=== PATIENT | female | born 1950 | race Caucasian/White ===

== ENCOUNTER → 2024-03-21 09:41 | Outpatient (REF) | payer MEDICARE, BC, SELFPAY | LOC: RAD 09:41 | PROVIDERS: ATTENDING PHYSICIAN Internal Medicine Gastroenterology; FAMILY PHYSICIAN Internal Medicine; OTHER PHYSICIAN Internal Medicine Gastroenterology | DX: R13.12 Dysphagia, oropharyngeal phase (principal) | CPT/HCPCS: 74230; 92611 ==

== ENCOUNTER 2024-05-23 11:34 | Inpatient (IN) | payer MEDICARE, BC, SELFPAY ==
[2024-05-23] VITALS (10 sets, daily range): BP systolic 128–168; BP diastolic 84–104; BMI 28.7; BMI 28.4
[2024-05-23 04:51] LABS: % Basophils 0.3 % (0-2); % Immature Granulocytes 0.4 % (0-0.5); % Lymphocytes 6.3 % (20.5-51.1); % Monocytes 2.7 % (1.7-9.3); % Neutrophils 90.3 % (42.2-75.2); Absolute Basophils 0.1 10^3/uL (0-0.2); Absolute Immature Granulocytes 0.1 10^3/uL (0-0.05); Absolute Lymphocytes 1.2 10^3/uL (1.2-3.4); Absolute Monocytes 0.5 10^3/uL (0.1-0.6); Hematocrit 41.6 % (37.0-47.0); Hemoglobin 14.6 g/dL (12.0-16.0); Mean Corp Hgb Conc. 35.1 g/dL (33.0-37.0); Mean Corpuscular Hgb 29.3 pg (27.0-31.0); Mean Corpuscular Volume 83.5 fL (81.0-99.0); Mean Platelet Volume 8.9 fL (7.4-10.4); Nucleated Red Blood Cells % 0 %; Platelet Count 312 10^3/uL (130-400); Red Blood Cell Count 4.98 10^6/uL (4.20-5.40); Red Cell Dist. Width 12.7 % (11.5-14.5); White Blood Cell Count 18.8 10^3/uL (4.8-10.8)
[2024-05-23 05:04] LABS: Lactic Acid 2.5 mmol/L (0.7-2.0)
[2024-05-23 05:14] LABS: ALT (SGPT) 22 U/L (0-35); AST (SGOT) 23 U/L (14-36); Albumin 4.5 g/dl (3.5-5.0); Alkaline Phosphatase 115 U/L (38-126); Blood Urea Nitrogen 16 mg/dl (7-17); Calcium 10.2 mg/dl (8.4-10.2); Carbon Dioxide 24 mmol/L (22-30); Chloride 105 mmol/L (98-107); Estimated Creatinine Clearance 30 ml/min; Glucose 148 mg/dl (70-99); Lipase 57 U/L (23-300); Potassium 4.7 mmol/L (3.5-5.1); Sodium 140 mmol/L (135-145); Total Bilirubin 0.8 mg/dl (0.2-1.3); eGFR 39.48
--- NOTE | 2024-05-23 07:55 | ED.GENMED ---
History of Present Illness
General
Chief Complaint: Abdominal Symptoms
Source: patient
Exam Limitations: none
Time Seen by Provider: 05/23/24 07:39
History of Present Illness
History of Present Illness:
73-year-old female presents with onset of vomiting abdominal pain and diarrhea last evening. She had many episodes of both. Towards the end she noted red drops of blood coming into the toilet after having bowel movements. The stool otherwise was
brown. She is not anticoagulated she notes diffuse abdominal pain. She states she has not had a bowel movement since arriving in the emergency room. She states in the past in [place] she was diagnosed with some type of colitis. She has been
following with a GI doctor through [facility] but recently switched to the [facility] gastroenterology group. She is due for colonoscopy on June 15. She is not anticoagulated
Phy Exam
Physical Exam
Physical Exam:
General: Uncomfortable appearing female no acute respiratory distress
HEENT: Normocephalic atraumatic neck is supple
Heart: Tachycardic but regular
Lungs: Clear no wheeze
Abdomen: Soft diffusely tender no guarding or rebound normal bowel sound
Extremities: No cyanosis
Course
Orders/Labs/Results
Orders:
Orders
05/23/24 04:15
IV Insert/Care/Rem.- Treatment PRN
05/23/24 04:30
Type+Screen Urgent
Complete Blood Count/With Diff Urgent
Comprehensive Metabolic Panel Urgent
Lipase Urgent
05/23/24 04:37
Lactate Level [Lactic Acid] Urgent
05/23/24 07:53
STOOL [C difficile Antigen & Toxins] Urgent
LAKSHMI Source: Feces/Stool
Specimen Description:
Stool Culture Urgent
LAKSHMI Source: Feces/Stool
Specimen Description:
0.9% Sodium Chloride 1000 ml [Nss] 1,000 ml IV BOLUS
Ketorolac [Toradol] 15 mg IV NOW STA
05/23/24 07:54
CT Abd/pelvis W Iv Cont Urgent
Comment:
Reason For Exam: abdominal pain, diarrhea
05/23/24 08:47
Zosyn 3.375 grams IVPB NOW Piperacillin/Tazo 3.375 Gram [Zosyn] 3.375 gram in 50 ml IV NOW
Abnormal Lab Results
05/23/24 05/23/24
04:30 04:37
WBC 18.8 H 10^3/uL
(4.8-10.8)
Abs Immat Gran (auto) 0.1 H 10^3/uL
(0-0.05)
Absolute Neuts (auto) 17.0 H 10^3/uL
(1.4-6.5)
Neutrophils % 90.3 H %
(42.2-75.2)
Lymphocytes % 6.3 L %
(20.5-51.1)
Creatinine 1.4 H mg/dL
(0.6-1.0)
Glucose 148 H mg/dl
(70-99)
Lactic Acid 2.5 H mmol/L
(0.7-2.0)
05/23/24 04:30
05/23/24 04:30
Vital Signs
Initial and Last Documented VS:
Initial Vital Signs
Temp Pulse Resp BP Pulse Ox
98.5 F 110 16 168/100 96
05/23/24 03:53 05/23/24 03:53 05/23/24 03:53 05/23/24 03:53 05/23/24 03:53
Last Documented Vital Signs
Temp Pulse Resp BP Pulse Ox
98.5 F 115 25 151/104 94
05/23/24 03:53 05/23/24 07:34 05/23/24 07:34 05/23/24 07:34 05/23/24 07:34
MDM/Problems Addressed
Differential Diagnosis Includes:
Abdominal pain vomiting diarrhea. Question viral illness versus colitis versus gastroenteritis versus obstruction
Patient tender on exam. Will obtain CT scan. If patient has bowel movement check stool culture for infectious cause. On laboratory analysis patient has leukocytosis with a left level of 2.5. Fluids ordered Toradol ordered for pain.
*Critical Care Note
Total Time (30-74mins, 75-104mins- exclusive of procedures): Not Applicable
Update Note
Update Note:
CT scan demonstrates diffuse colitis whether be infectious versus inflammatory. Will cover with antibiotics given the leukocytosis and elevated lactic acid. Hydration ordered Zosyn ordered. Will admit to hospital
ED Attending Note
-
Portions of this chart may have been created with voice recognition software.� Occasional wrong word or��sound alike� substitutions may have occurred due to the inherent limitations of voice recognition software.
Discharge Plan
Departure
Patient Disposition: Admit
Date of Disposition: 05/23/24
Time of Disposition: 08:48
Admit to: Telemetry
Presentation/result/management discussed w/ accepting MD/DO: Hospitalist
Discharge Problem:
Colitis
Prescriptions:
No Action
ascorbic acid (vitamin C) [Vitamin C] 1,000 mg Tablet
1,000 mg PO DAILY
guaifenesin [Robitussin] 100 mg/5 mL Liquid
200 mg PO Q4H PRN (Reason: cough)
simvastatin 20 mg Tablet
20 mg PO DAILY
albuterol 90 mcg/actuation Aerosol
90 mcg INHALATION DAILY
polyethylene glycol 3350 [Miralax] 17 gram/dose Powder
4 g PO DAILY
Excedrin Migraine 250-250-65 mg Tablet
2 tab PO Q6H PRN (Reason: headache)
diazepam 5 mg Tablet
2.5 mg PO DAILY
bupropion HCl 200 mg Tablet Sustained-Release 12 Hr
200 mg PO DAILY
cholecalciferol (vitamin D3) [Vitamin D3] 125 mcg (5,000 unit) Tablet
125 mcg PO DAILY
Nurtec ODT 75 mg Tablet,Disintegrating
75 mg PO ONCE PRN (Reason: migraines)
Multivitamin Women 50 Plus
1 tab PO DAILY
Referrals:
Sanjeev Rivera MD [Family Provider] -
Interventions
Interventions:
*Risk Screen - Suicide Last Done: 05/23/24 03:53
*General Assessment Last Done: 05/23/24 03:53
*Neglect/Abuse Screening Last Done: 05/23/24 03:53
ED- Fall Risk Assessment Last Done: 05/23/24 03:53
*ED COVID-19 Vaccine History Last Done: 05/23/24 03:53
UF-Zexvdw-Bcettrrqgz Assessment Last Done: 05/23/24 04:00
Discharge Date and Time
Print Language: THAI
[2024-05-23] MEDS: TORADOL 15 MG IV (08:03)
[2024-05-23] MEDS: NSS 1000 IV ×3 (08:04→23:27)
[2024-05-23] MEDS: ZOSYN 50 IV ×3 (09:02→20:33)
--- NOTE | 2024-05-23 09:06 | HPS.HSE ---
Family Physician
-
Family Physician: Sanjeev Rivera MD
Chief Complaint
-
Bloody diarrhea
History of Present Illness
73F migraine anxiety GERD hyperlipidemia presents with new onset vomiting abdominal pain diarrhea last evening. Noted blood spots in last diarrhea bowel movement prompting visit to ED. Patient relates history of chronic intermittent alternating
constipation diarrhea nausea vomiting for the past few years. Diagnosed with unspecified colitis in past. Recently followed at [place] switched to GI care here. Former smoker 25+ years recently quit January 2024. In ED patient was sinus
tachycardia hypertensive but afebrile stable respiratory status on room air. Diffuse abdomen pain, left-sided tenderness, improved with once Toradol given by ED. Leukocytosis 18.8. Mild lactic acidosis 2.5 resolved with IV fluid bolus. Initial
creatinine 1.4 no prior values available. CT noted severe colitis involving distal transverse colon descending colon and proximal sigmoid colon. Suspect IBD flare versus sepsis (tachycardia leukocytosis) infectious colitis
Medical History
Past Medical History
Past Medical History: Reports Other (As above)
Past Surgical History: Reports Other (As above)
Social History
Tobacco: Former Smoker
Alcohol: Occasional
Drug: None
Personal:
Living: Alone
Family History
Family History: Not pertinent (Reviewed)
Allergies / Home Medications
Allergies reflects when Allergies were last updated in [facility].
Home Medications with original date entered in [facility]
Allergy/Medication List:
Allergies
Allergy/AdvReac Type Severity Reaction Status Date / Time
No Known Allergies Allergy Unverified 05/23/24 03:52
Home Medications
puzxizj-ytedujpvuywfa-ndktlfyo 250 mg-250 mg-65 mg tablet (Excedrin Migraine) 2 tab PO DAILYPRN PRN headache 05/23/24
bupropion HCl 200 mg tablet,12 hr sustained-release 200 mg PO BID 05/23/24
cholecalciferol (vitamin D3) 25 mcg (1,000 unit) tablet (Vitamin D3) 25 mcg PO DAILY 05/23/24
diazepam 5 mg tablet 2.5 mg PO HS 05/23/24
guaifenesin 100 mg/5 mL oral liquid 200 mg PO Q4HPRN PRN cough 05/23/24
omeprazole 20 mg tablet,delayed release 20 mg PO HS 05/23/24
polyethylene glycol 3350 17 gram/dose oral powder (Miralax) 17 g PO DAILY 05/23/24
rimegepant 75 mg disintegrating tablet (Nurtec ODT) 75 mg PO DAILYPRN PRN migraines 05/23/24
simvastatin 20 mg tablet 20 mg PO QPM 05/23/24
therapeutic multivitamin 1 tab PO DAILY 05/23/24
Review of Systems
-
A 12 point ROS was completed and negative except as noted: Yes
Constitutional: Reports Other (As below)
Physical Exam
Vital Signs
Vital Signs
Temp Pulse Resp BP Pulse Ox
98.5 F 105 25 162/96 94
05/23/24 03:53 05/23/24 08:45 05/23/24 08:45 05/23/24 08:00 05/23/24 08:00
Physical Exam
General: Other (As below)
Laboratory Results
-
05/23/24 04:30
05/23/24 04:30
Laboratory Results
Lactic Acid 2.5 mmol/L (0.7-2.0) H 05/23/24 04:37
Total Bilirubin 0.8 mg/dl (0.2-1.3) 05/23/24 04:30
AST 23 U/L (14-36) 05/23/24 04:30
ALT 22 U/L (0-35) 05/23/24 04:30
Alkaline Phosphatase 115 U/L (38-126) 05/23/24 04:30
Lipase 57 U/L (23-300) 05/23/24 04:30
Impression/Plan
-
ROS
General: Denies fever chills night sweats unexpected weight loss
Neuro: Denies seizure shaking loss of consciousness dizziness vertigo
Psych: denies depression hallucinations confusion manic episodes
Endocrine: Denies polyuria polydipsia polyphagia heat/cold intolerance
HEENT: Denies blindness visual disturbances epistaxis
Pulmonary: denies coughing hemoptysis sneezing sob dyspnea on exertion
Cardiovascular: denies chest pain palpitations leg swelling
Hematology: denies signs symptoms of anemia easy bruising/bleeding
Gastrointestinal: reports diffuse abd pain diarrhea with blood spotting nausea vomiting, also notes hx intermittent alternating constipation diarrhea
Genito-Urinary: denies retention incontinence dysuria
Musculoskeletal: denies joint pain weakness
Dermatology: denies rash laceration bruising
Physical Exam
General: No pallor, cyanosis, or jaundice.
HEENT: Throat clear. PERRLA Normocephalic atraumatic
NECK: Supple. No JVD Carotid Bruits
RESPIRATORY: Lungs clear to auscultation. No crackles wheezes stridor
CVS: S1, S2 normal. RRR. No murmur, rub or gallop.
ABDOMEN: Soft, Left sided abd tenderness no rebound tenderness or guarding. No distension. BS+/normal.
EXTREMITIES: No peripheral cyanosis or edema.
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
IMPRESSION:
73F migraine anxiety GERD hyperlipidemia presents with new onset vomiting abdominal pain diarrhea last evening. Noted blood spots in last diarrhea bowel movement prompting visit to ED. Patient relates history of chronic intermittent alternating
constipation diarrhea nausea vomiting for the past few years. Diagnosed with unspecified colitis in past. Recently followed at [place] switched to GI care here. Former smoker 25+ years recently quit January 2024. In ED patient was sinus
tachycardia hypertensive but afebrile stable respiratory status on room air. Diffuse abdomen pain, left-sided tenderness, improved with once Toradol given by ED. Leukocytosis 18.8. Mild lactic acidosis 2.5 resolved with IV fluid bolus. Initial
creatinine 1.4 no prior values available. CT noted severe colitis involving distal transverse colon descending colon and proximal sigmoid colon. Suspect IBD flare versus sepsis (tachycardia leukocytosis) infectious colitis
PLAN:
#Sepsis (tachycardia leukocytosis) infectious colitis versus IBD flare
#Bloody diarrhea
#Severe colitis as noted on CT
Continue empiric IV antibiotics Zosyn
Bowel rest, n.p.o. except meds sips of clears
IV fluid
Pain control as needed Dilaudid Tylenol
As needed antiemetic Compazine
Check EKG
GI eval requested
#Hypertension
Possibly due to pain discomfort
classroom monitor
Hydralazine as needed
#NINA versus CKD
Initial creatinine 1.4 unclear baseline
Denies dysuria oliguria
Monitor renal function, avoid nephrotoxic agents
#Migraine
Continue as needed Fioricet, Nurtec (patient's own med)
#Anxiety
Continue home bupropion, diazepam with holding parameters for sedation
#GERD
Continue PPI
DVT prophylaxis SCDs
DNR as per patient
I spent a total of 75 minutes with the patient or on the floor. More than 50% of this time involved counseling and coordination of care.
[2024-05-23 10:39] LABS: Lactic Acid 1.7 mmol/L (0.7-2.0)
--- NOTE | 2024-05-23 13:18 | CON.GI ---
Addendum entered and electronically signed by Mason Hanson MD 05/23/24 14:44:
Patient seen and examined, agree with nurse practitioner note. Patient presents with recurrent abdominal pain, vomiting and diarrhea. She has had multiple episodes of this over the past year and has had workup in [place] where colonoscopy showed
segmental colitis in the proximal sigmoid to distal transverse. She has episodes every few weeks and more severe symptoms, and did see more local GI, taking MiraLAX daily with soft stools usually. She now presents with more severe symptoms again
starting last night which is similar to in the past. She has significant leukocytosis with white count of 18.[address] scan again showing severe colitis from the distal transverse to the proximal sigmoid colon. She is feeling a bit better now. She
has been afebrile, and only mild tenderness on the left side on exam, no rebound. 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 Underlying inflammatory bowel disease seems very unlikely given her
symptoms. At this point we will continue supportive care, IV fluids, antibiotics, check stool studies if further diarrhea. She has EGD and colonoscopy scheduled already on June 16 and will keep this for now. Pending her renal function may
consider MR angiogram during this hospitalization.
Original Note:
Consultation
-
Date/Time Consultation Requested: 05/23/24 1130
Date/Time Consultation Performed: 05/23/24 1320
Requesting Provider: Lizandro Avila MD
Performing Provider: JOSE A Higuera, Jonny Hanson MD
Reason for Consultation: abdominal pain with nausea, vomiting and diarrhea
Medical History
Chief Complaint / HPI
History of Present Illness:
Pt is a 73yo presents with hx GERD, hypercholesterolemia, anxiety, hemorrhoids, HH, cataracts,migraines, chronic cough, diverticulitis, IBS and colitis 2016 with hx recurrent bouts of abdominal pain with nausea, vomiting and diarrhea. Pt states
she has had innumerable bouts over the years with only admission in [place] where she resided in past. She moved here around 3 years ago with care through Dr. Olmedo and recent evaluation for Dr. Mekapati. She now presents with severe bout of
symptoms starting last PM. On admission hbg 14.6, WBC 18.8, Lactate 2.5 with drop to 1.[address] with severe colitis in distal transverse colon, descending and proximal sigmoid colon. Last colonoscopy 2016 in [place] with segmental
colitis from mid sigmoid to proximal extent of distal transverse colon with ulceration, submucosal hemorrhage and mucosal edema. exam terminated in due to severity of colitis. Also noted diverticulosis and hemorrhoids.
Pt admits to hx GERD with prior Linx device but recent cough possible GERD related and remains on Omeprazole. She did have nausea/vomiting without hematemesis. on admission now resolved. Abdominal pain is lower. Noted 09/07 prior to admission
then 2-02/05 today. She admits to Miralax daily with daily BM often on looser side. No constipation. She did have small amount red blood in stools with diarrhea last PM now resolved.
Past Medical History
Past Medical History: GERD, Hypercholesterolemia, Renal Failure (CKD), Psychiatric (anxiety) and Other (unspecified colitis, cataracts, IBS, HH, hemorrhoids, chronic cough, migraines, diverticultis )
Past Surgical History: Cholecystectomy, Gynecological (hysterectomy), Tonsilectomy and Other (rhinoplasty, foot neuroma removal, b/l Lasik, blepharoplasty, cataract surgery, Linx 2018 )
Social History
Tobacco: Former Smoker (quit January )
Alcohol: Occasional (2 drinks per month)
Drug: None
Living: Alone
Employment: Retired
Family History
Family History: Other (no family hx )
Allergies / Home Medications
Allergy/AdvReac Type Severity Reaction Status Date / Time
No Known Allergies Allergy Unverified 05/23/24 03:52
�Medication �Instructions �Recorded
ocyarzs-mrmpxuzcgoouh-gsxbzbbv 250 2 tab PO DAILYPRN PRN headache 05/23/24
mg-250 mg-65 mg tablet (Excedrin
Migraine)
bupropion HCl 200 mg tablet,12 hr 200 mg PO BID 05/23/24
sustained-release
cholecalciferol (vitamin D3) 25 25 mcg PO DAILY 05/23/24
mcg (1,000 unit) tablet (Vitamin
D3)
diazepam 5 mg tablet 2.5 mg PO HS 05/23/24
guaifenesin 100 mg/5 mL oral liquid 200 mg PO Q4HPRN PRN cough 05/23/24
omeprazole 20 mg tablet,delayed 20 mg PO HS 05/23/24
release
polyethylene glycol 3350 17 17 g PO DAILY 05/23/24
gram/dose oral powder (Miralax)
rimegepant 75 mg disintegrating 75 mg PO DAILYPRN PRN migraines 05/23/24
tablet (Nurtec ODT)
simvastatin 20 mg tablet 20 mg PO QPM 05/23/24
therapeutic multivitamin 1 tab PO DAILY 05/23/24
Review of Systems
-
History Source: Patient
Constitutional: Reports No Symptoms
EENT: Reports No Symptoms
Respiratory: Reports Cough
Abdomen/GI: Reports Abdominal Pain, Nausea, Vomiting, Diarrhea and Bloody Stools
: Reports Incontinence (at times )
Musculoskeletal: Reports No Symptoms
Skin: Reports No Symptoms
Neurological: Reports Weakness
Endocrine: Reports No Symptoms
Hematologic/Lymphatic: Reports Bleeding
Vital Signs
Temp Pulse Resp BP Pulse Ox
98.5 F 108 14 128/84 97
05/23/24 03:53 05/23/24 11:45 05/23/24 11:45 05/23/24 11:00 05/23/24 11:52
Physical Exam
Exam
General: Well Developed, Well Nourished and No Apparent Distress
HEENT: Normocephalic and Anicteric
Respiratory: Clear
Cardiac: Other (tachy)
GI: Soft, Non Distended and Tender (lower abdomen )
Musculoskeletal: No Clubbing and No Cyanosis
Skin: Warm and Dry
Neuro: Awake, Alert and AO x 3
Psych: Calm
Results
WBC 18.8 10^3/uL (4.8-10.8) H 05/23/24 04:30
Hgb 14.6 g/dL (12.0-16.0) 05/23/24 04:30
Hct 41.6 % (37.0-47.0) 05/23/24 04:30
MCV 83.5 fL (81.0-99.0) 05/23/24 04:30
Plt Count 312 10^3/uL (130-400) 05/23/24 04:30
Absolute Neuts (auto) 17.0 10^3/uL (1.4-6.5) H 05/23/24 04:30
Sodium 140 mmol/L (135-145) 05/23/24 04:30
Potassium 4.7 mmol/L (3.5-5.1) 05/23/24 04:30
Chloride 105 mmol/L (98-107) 05/23/24 04:30
Carbon Dioxide 24 mmol/L (22-30) 05/23/24 04:30
BUN 16 mg/dl (7-17) 05/23/24 04:30
Creatinine 1.4 mg/dL (0.6-1.0) H 05/23/24 04:30
Calcium 10.2 mg/dl (8.4-10.2) 05/23/24 04:30
Total Bilirubin 0.8 mg/dl (0.2-1.3) 05/23/24 04:30
AST 23 U/L (14-36) 05/23/24 04:30
ALT 22 U/L (0-35) 05/23/24 04:30
Alkaline Phosphatase 115 U/L (38-126) 05/23/24 04:30
Lipase 57 U/L (23-300) 05/23/24 04:30
Diagnostic Image Results:
05/23/24 CT Abd/pelvis W Iv Cont
1. Findings consistent with severe colitis involving the distal transverse colon, descending colon, and proximal sigmoid colon. Colitis is likely infectious or inflammatory.
2. Status post cholecystectomy. Mild biliary ductal dilation, likely within normal limits following cholecystectomy.
Prior GI Procedures:
Colonoscopy: 2016 in [place] with segmental colitis from mid sigmoid to proximal extent of distal transverse colon with ulceration, submucosal hemorrhage and mucosal edema. exam terminated in [facility] due to severity of colitis. Also noted
diverticulosis and hemorrhoids.
Assessment / Plan
-
Pt is a 73yo presents with hx GERD, hypercholesterolemia, anxiety, hemorrhoids, HH, cataracts,migraines, chronic cough, diverticulitis, IBS and colitis 2016 with hx recurrent bouts of abdominal pain with nausea, vomiting and diarrhea. Pt states
she has had innumerable bouts over the years with only admission in [place] where she resided in past. She moved here around 3 years ago with care through Dr. Olmedo and recent evaluation for Dr. Haro. She now presents with severe bout of
symptoms starting last PM. On admission hbg 14.6, WBC 18.8, Lactate 2.5 with drop to 1.[address] with severe colitis in distal transverse colon, descending and proximal sigmoid colon. Last colonoscopy 2016 in [place] with segmental
colitis from mid sigmoid to proximal extent of distal transverse colon with ulceration, submucosal hemorrhage and mucosal edema. exam terminated in [facility] due to severity of colitis. Also noted diverticulosis and hemorrhoids.
-left sided colitis with nausea/vomiting, diarrhea and rectal bleeding
-leukocytosis
-hx prior segmental colitis on prior colonoscopy
other med problems:
-GERD with prior LINX
-chronic cough
-hypercholesterolemia
-anxiety
-HH
-cataracts
-migraines
-IBS
-prior tobacco use
PLAN:
etiology of recurrent abdominal pain related to colitis- ischemic with noted left sided distribution, infectious vs IBD
pt feeling better
advance to clear diet
will review with Dr. Hanson-- for EGD/colon she is scheduled 06/[address] Haro vs pt asking about inpatient testing
t/c CTA vs MRA to eval vasculature
maintain adequate perfusion
trend CBC
stool cx pending to be sent
IV abx
resume PPI with hx GERD
tobacco abstience
-
-
-
Thank you for consultation and allowing me to participate in the patient's care. Please call the controls project engineer GI physician during the after hours with any questions or concerns.
[2024-05-23] MEDS: DILAUDID 0.25 MG IV (16:39)
[2024-05-23] MEDS: APRESOLINE 5 MG IV ×2 (17:37→23:26)
[2024-05-23] MEDS: LIPITOR 10 MG PO (17:37)
[2024-05-23] MEDS: VALIUM 2.5 MG PO (21:26)
[2024-05-23] MEDS: COMPAZINE 5 MG IV (21:29)
[2024-05-24] VITALS (7 sets, daily range): BP systolic 114–140; BP diastolic 64–83
[2024-05-24] MEDS: DILAUDID 0.5 MG IV ×2 (01:37→14:04)
[2024-05-24] MEDS: ZOSYN 50 IV ×4 (02:27→21:06)
--- NOTE | 2024-05-24 06:33 | W.PN.GI.CBS2 ---
Today's Communication / Plan
-
Please see assessment and plan for details.
Assessment / Plan
-
1. Colitis: With chronic intermittent symptoms, and several studies now that show significant colitis at the splenic flexure, most consistent with watershed ischemia. She still has tenderness though is overall improved, afebrile overnight. At
this point we will continue supportive care, antibiotics for now, stool studies if further diarrhea. Will advance to full liquid diet and if continues to improve then probably advance to low residue tomorrow and possible discharge, to follow-up
with planned outpatient EGD and colonoscopy already scheduled in later May.
-
Subjective
Subjective
Date of Service: May 24, 2024
Patient feeling okay, still some tenderness though improved, no fevers overnight, no bowel movements overnight.
Objective
Data Reviewed
Laboratory Data:
Laboratory Results
Total Bilirubin 0.8 mg/dl (0.2-1.3) 05/23/24 04:30
AST 23 U/L (14-36) 05/23/24 04:30
ALT 22 U/L (0-35) 05/23/24 04:30
Alkaline Phosphatase 115 U/L (38-126) 05/23/24 04:30
Lipase 57 U/L (23-300) 05/23/24 04:30
Vital Signs and I&O:
Vital Signs
Temp Pulse Resp BP Pulse Ox
98.0 F 97 19 114/69 95
05/24/24 03:38 05/24/24 03:38 05/24/24 03:38 05/24/24 03:38 05/24/24 03:38
I&O
05/22/24 05/23/24 05/24/24
06:59 06:59 06:59
Intake Total 1440 / 1440
Balance 1440 / 1440
Physical Exam
Physical Exam
General: NAD
Abdomen: normal bowel sounds, soft, mild left-sided tenderness, no masses or bruits, no ascites
[2024-05-24 06:38] LABS: Hematocrit 35.6 % (37.0-47.0); Hemoglobin 12.4 g/dL (12.0-16.0); Mean Corp Hgb Conc. 34.8 g/dL (33.0-37.0); Mean Corpuscular Hgb 29.5 pg (27.0-31.0); Mean Corpuscular Volume 84.8 fL (81.0-99.0); Mean Platelet Volume 8.9 fL (7.4-10.4); Platelet Count 264 10^3/uL (130-400); Red Cell Dist. Width 13.2 % (11.5-14.5); White Blood Cell Count 16.2 10^3/uL (4.8-10.8)
[2024-05-24 07:24] LABS: ALT (SGPT) 21 U/L (0-35); AST (SGOT) 31 U/L (14-36); Albumin 3.4 g/dl (3.5-5.0); Alkaline Phosphatase 81 U/L (38-126); Blood Urea Nitrogen 12 mg/dl (7-17); Calcium 8.8 mg/dl (8.4-10.2); Carbon Dioxide 22 mmol/L (22-30); Chloride 110 mmol/L (98-107); Estimated Creatinine Clearance 35 ml/min; Glucose 100 mg/dl (70-99); Magnesium 2.2 mg/dl (1.6-2.3); Phosphorus 3.6 mg/dl (2.5-4.5); Sodium 137 mmol/L (135-145); Total Bilirubin 0.8 mg/dl (0.2-1.3); Total Protein 5.5 g/dl (6.3-8.2)
--- NOTE | 2024-05-24 07:25 | W.PN.HOSP.TC ---
Today's Communication/Plan
-
abx
IVF support
pain control
diet as per GI
monitor H&H
Assessment / Plan
Assessment / Plan
Physical Exam
General: No pallor, cyanosis, or jaundice.
HEENT: Throat clear. PERRLA Normocephalic atraumatic
NECK: Supple. No JVD Carotid Bruits
RESPIRATORY: Lungs clear to auscultation. No crackles wheezes stridor
CVS: S1, S2 normal. RRR. No murmur, rub or gallop.
ABDOMEN: Soft, Left sided abd tenderness no rebound tenderness or guarding. No distension. BS+/normal.
EXTREMITIES: No peripheral cyanosis or edema.
CHEMISTRY TECHNOLOGIST: AOx3..
IMPRESSION:
73F migraine anxiety GERD hyperlipidemia presents with new onset vomiting abdominal pain diarrhea last evening. Noted blood spots in last diarrhea bowel movement prompting visit to ED. Patient relates history of chronic intermittent alternating
constipation diarrhea nausea vomiting for the past few years. Diagnosed with unspecified colitis in past. Recently followed at [place] switched to GI care here. Former smoker 25+ years recently quit January 2024. In ED patient was sinus
tachycardia hypertensive but afebrile stable respiratory status on room air. Diffuse abdomen pain, left-sided tenderness, improved with once Toradol given by ED. Leukocytosis 18.8. Mild lactic acidosis 2.5 resolved with IV fluid bolus. Initial
creatinine 1.4 no prior values available. CT noted severe colitis involving distal transverse colon descending colon and proximal sigmoid colon. Suspect IBD flare versus sepsis (tachycardia leukocytosis) infectious colitis
PLAN:
#Sepsis (tachycardia leukocytosis) infectious colitis versus IBD flare vs ischemic colitis (most likely)
#Bloody diarrhea
#Severe colitis as noted on CT
Continue empiric IV antibiotics Zosyn
cont IV fluid
Pain control as needed Dilaudid Tylenol
As needed antiemetic Compazine
EKG appreciated mild QT prolongation
GI eval appreciated diet advanced to full liquid later downgraded back to clears after episode bloody bowel movement (VSS H&H remains relatively stable will cont to monitor)
#Hypertension
Possibly due to pain discomfort
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
Hydralazine as needed
#NINA versus CKD
Initial creatinine 1.4 unclear baseline
Denies dysuria oliguria
Monitor renal function, avoid nephrotoxic agents
cont IVF
Cr improving
#Migraine
Continue as needed Fioricet, Nurtec (patient's own med)
#Anxiety
Continue home bupropion, diazepam with holding parameters for sedation
#GERD
Continue PPI
DVT prophylaxis SCDs
DNR as per patient
Discussed with patient and patient's Daughter Keke at bedside
I spent a total of 55 minutes with the patient or on the floor. More than 50% of this time involved counseling and coordination of care.
Anticipated Discharge: 24 - 48 hours
Subjective/Interval History
-
Date of Service: May 24, 2024
Seen and examined at bedside in no acute distress sitting up comfortably in bed. Continues to report significant abd pain with associate left sided tenderness. Recent bloody bowel movement noted. Vital signs otherwise stable
Objective Data
-
Labs:
Laboratory Results
05/24/24
05:33
WBC 16.2 H
Hgb 12.4
Hct 35.6 L
Plt Count 264
Sodium 137
Potassium 4.0
Chloride 110 H
Carbon Dioxide 22
BUN 12
Creatinine 1.2 H
Glucose 100 H
Calcium 8.8
Total Bilirubin 0.8
AST 31
ALT 21
Alkaline Phosphatase 81
Vital Signs:
Vital Signs
Temp Pulse Resp BP Pulse Ox
98.0 F 97 19 114/69 95
05/24/24 03:38 05/24/24 03:38 05/24/24 03:38 05/24/24 03:38 05/24/24 03:38
I&O
05/23/24 05/24/24 05/25/24
06:59 06:59 06:59
Intake Total 1440 / 1440
Balance 1440 / 1440
[2024-05-24] MEDS: PROTONIX IV 40 MG IV (08:46)
[2024-05-24] MEDS: THERAGRAN 1 TABLET PO (08:46)
[2024-05-24] MEDS: VITAMIN D3 (cholecalciferol) 25 MCG PO (08:46)
[2024-05-24] MEDS: NSS (PRESERVATIVE FREE) 10 ML IV (08:46)
[2024-05-24] MEDS: WELLBUTRIN XL (24 hour extended release) 150 MG PO (08:46)
--- NOTE | 2024-05-24 10:06 | PTCARENOTE ---
pt is a self in the room currently on a full liquid diet. pt is receiving IVF and IV zosyn through her L AC site. pt is aaox3 within the room and has no complaints at this time
[2024-05-24] MEDS: NSS 1000 IV ×2 (11:18→22:41)
[2024-05-24] MEDS: TYLENOL 650 MG PO (11:19)
--- NOTE | 2024-05-24 13:14 | CM ---
Initial assessment completed with patient who lives alone in a 1st floor condo with 4 steps to enter. No DME or in-home services. [employer] ARCHITECT was independent and drove. One Psychiatric hospitalization in 1986 for depression. [facility]
[address] in [place] and PCP is Dr. Sanjeev Rivera. Patient is requesting a Audit Practice Intern consult. Attending notified. Anticipate no needs at discharge.
[2024-05-24 14:01] LABS: Hematocrit 36.3 % (37.0-47.0); Hemoglobin 12.7 g/dL (12.0-16.0)
--- NOTE | 2024-05-24 14:24 | PTCARENOTE ---
pt with blood in stool when nurse and pct went to collect sample. all that was in hat was blood with no stool content. pt with rechecked H&H, continuing IVF and changed back to clear liquid diet at this time. MD and GI made aware and orderss placed.
Stat 0.5mg of dilaudid given for pt abd pain.
[2024-05-24] MEDS: LIPITOR 10 MG PO (18:17)
[2024-05-24 19:35] LABS: Hematocrit 33.3 % (37.0-47.0); Hemoglobin 11.7 g/dL (12.0-16.0)
[2024-05-24] MEDS: ROBITUSSIN 200 MG PO (20:32)
--- NOTE | 2024-05-24 21:17 | W.PN.UPDATE ---
Update Note
Progress Note Update
Patient had 2 episodes of bloody bowel movement since the beginning on pillow filler. Vital signs within normal limits. new order of h&h was placed hgb level dropped down from 12.7 to 11.7 after the first episode of bloody bm.
- Blood consent was obtained, kept in the chart and will trend h&h as needed.
[2024-05-24] MEDS: VALIUM 2.5 MG PO (21:49)
[2024-05-25 01:30] LABS: Hematocrit 33.8 % (37.0-47.0); Hemoglobin 11.8 g/dL (12.0-16.0)
[2024-05-25] MEDS: ZOSYN 50 IV ×4 (02:53→20:56)
[2024-05-25 03:00] VITALS: BP 138/86
[2024-05-25 04:57] VITALS: BMI 28.3
--- NOTE | 2024-05-25 06:29 | W.PN.GI.CBS2 ---
Today's Communication / Plan
-
Please see assessment and plan for details.
Assessment / Plan
-
1. Colitis: With chronic intermittent symptoms, and several studies now that show significant colitis at the splenic flexure, most consistent with watershed ischemia. She had 2 bloody stools yesterday though hemoglobin overall stable, again
consistent with ischemic colitis, exam overall improving. At this point will await morning labs, though if stable advance to low residue diet and continue supportive care. Again we will plan eventual MRA when her creatinine has normalized, will
keep planned outpatient EGD and colonoscopy with Dr. Haro in May as scheduled.
-
Subjective
Subjective
Date of Service: May 25, 2024
Patient feeling okay today, had 2 episodes yesterday of bloody stools, though less overall, less pain, no fevers or chills, hemoglobin remained stable.
Objective
Data Reviewed
Laboratory Data:
Laboratory Results
Phosphorus 3.6 mg/dl (2.5-4.5) 05/24/24 05:33
Magnesium 2.2 mg/dl (1.6-2.3) 05/24/24 05:33
Total Bilirubin 0.8 mg/dl (0.2-1.3) 05/24/24 05:33
AST 31 U/L (14-36) 05/24/24 05:33
ALT 21 U/L (0-35) 05/24/24 05:33
Alkaline Phosphatase 81 U/L (38-126) 05/24/24 05:33
Lipase 57 U/L (23-300) 05/23/24 04:30
Vital Signs and I&O:
Vital Signs
Temp Pulse Resp BP Pulse Ox
98.1 F 102 18 138/86 95
05/25/24 03:00 05/25/24 03:00 05/25/24 03:00 05/25/24 03:00 05/25/24 03:00
I&O
05/23/24 05/24/24 05/25/24
06:59 06:59 06:59
Intake Total 1440 / 1440 1300 / 1300
Balance 1440 / 1440 1300 / 1300
Physical Exam
Physical Exam
General: NAD
Abdomen: normal bowel sounds, soft, mild left-sided tenderness, no masses or bruits, no ascites
[2024-05-25 06:39] LABS: Hemoglobin 10.7 g/dL (12.0-16.0)
[2024-05-25 06:43] LABS: Hematocrit 31.1 % (37.0-47.0); Hemoglobin 10.7 g/dL (12.0-16.0); Mean Corp Hgb Conc. 34.4 g/dL (33.0-37.0); Mean Corpuscular Hgb 29.2 pg (27.0-31.0); Platelet Count 232 10^3/uL (130-400); Red Blood Cell Count 3.66 10^6/uL (4.20-5.40); Red Cell Dist. Width 13.2 % (11.5-14.5); White Blood Cell Count 15.3 10^3/uL (4.8-10.8)
[2024-05-25 07:03] LABS: ALT (SGPT) 79 U/L (0-35); AST (SGOT) 58 U/L (14-36); Alkaline Phosphatase 107 U/L (38-126); Blood Urea Nitrogen 7 mg/dl (7-17); Calcium 9.1 mg/dl (8.4-10.2); Carbon Dioxide 20 mmol/L (22-30); Chloride 113 mmol/L (98-107); Estimated Creatinine Clearance 35 ml/min; Glucose 91 mg/dl (70-99); Magnesium 2.1 mg/dl (1.6-2.3); Phosphorus 3.2 mg/dl (2.5-4.5); Sodium 140 mmol/L (135-145); Total Bilirubin 0.8 mg/dl (0.2-1.3)
--- NOTE | 2024-05-25 07:18 | W.PN.HOSP.TC ---
Today's Communication/Plan
-
diet as per GI
once fioricet for headache
oxycodone added for pain control, dilaudid remains available for severe breakthrough pain
con abx
monitor H&H
Assessment / Plan
Assessment / Plan
Physical Exam
General: No pallor, cyanosis, or jaundice.
HEENT: Throat clear. PERRLA Normocephalic atraumatic
NECK: Supple. No JVD Carotid Bruits
RESPIRATORY: Lungs clear to auscultation. No crackles wheezes stridor
CVS: S1, S2 normal. RRR. No murmur, rub or gallop.
ABDOMEN: Soft, Left sided abd tenderness no rebound tenderness or guarding. No distension. BS+/normal.
EXTREMITIES: No peripheral cyanosis or edema.
VEST FRONT PRESSER: AOx3..
IMPRESSION:
73F migraine anxiety GERD hyperlipidemia presents with new onset vomiting abdominal pain diarrhea last evening. Noted blood spots in last diarrhea bowel movement prompting visit to ED. Patient relates history of chronic intermittent alternating
constipation diarrhea nausea vomiting for the past few years. Diagnosed with unspecified colitis in past. Recently followed at [place] switched to GI care here. Former smoker 25+ years recently quit January 2024. In ED patient was sinus
tachycardia hypertensive but afebrile stable respiratory status on room air. Diffuse abdomen pain, left-sided tenderness, improved with once Toradol given by ED. Leukocytosis 18.8. Mild lactic acidosis 2.5 resolved with IV fluid bolus. Initial
creatinine 1.4 no prior values available. CT noted severe colitis involving distal transverse colon descending colon and proximal sigmoid colon. Suspect IBD flare versus sepsis (tachycardia leukocytosis) infectious colitis
PLAN:
#Sepsis (tachycardia leukocytosis) infectious colitis versus IBD flare vs ischemic colitis (most likely)
#Bloody diarrhea
#Severe colitis as noted on CT
Continue empiric IV antibiotics Zosyn
cont IV fluid
Pain control as needed Tylenol, oxycodone added mod severe pain, dilaudid remains available for severe breakthrough pain
As needed antiemetic Compazine
EKG appreciated mild QT prolongation
GI eval appreciated diet advanced to full liquid later downgraded back to clears after episode bloody bowel movement (VSS H&H remains relatively stable will cont to monitor)
05/25 diet advanced to low residue as per GI
#Hypertension
Possibly due to pain discomfort
site monitor
Hydralazine as needed
BP since improved w/ improvement in pain
#NINA versus CKD
Initial creatinine 1.4 improved to 1,2 suspect baseline
Denies dysuria oliguria
Monitor renal function, avoid nephrotoxic agents
cont IVF
Cr improving
#Migraine
prn Tylenol
once fioricet 05/25
#Anxiety
Continue home bupropion, diazepam with holding parameters for sedation
#GERD
Continue PPI
DVT prophylaxis SCDs
DNR as per patient
I spent a total of 55 minutes with the patient or on the floor. More than 50% of this time involved counseling and coordination of care.
Anticipated Discharge: 24 - 48 hours
Subjective/Interval History
-
Date of Service: May 25, 2024
Continues to have bloody bowel movements. VSS. H&H stable. Pain control improving.
Objective Data
-
Labs:
Laboratory Results
05/24/24 05/25/24 05/25/24
19:30 01:14 05:40
WBC 15.3 H
Hgb 11.7 L 11.8 L 10.7 L
Hct 33.3 L 33.8 L
Plt Count
Sodium
Potassium
Chloride
Carbon Dioxide
BUN
Creatinine
Glucose
Calcium
Total Bilirubin
AST
ALT
Alkaline Phosphatase
05/25/24 05/25/24 05/25/24
05:40 05:40 13:30
WBC
Hgb 10.7 L Pending
Hct 31.1 L 31.0 L Pending
Plt Count 232
Sodium 140
Potassium 4.0
Chloride 113 H
Carbon Dioxide 20 L
BUN 7
Creatinine 1.2 H
Glucose 91
Calcium 9.1
Total Bilirubin 0.8
AST 58 H
ALT 79 H
Alkaline Phosphatase 107
05/25/24
19:30
WBC
Hgb Pending
Hct Pending
Plt Count
Sodium
Potassium
Chloride
Carbon Dioxide
BUN
Creatinine
Glucose
Calcium
Total Bilirubin
AST
ALT
Alkaline Phosphatase
Vital Signs:
Vital Signs
Temp Pulse Resp BP Pulse Ox
98.1 F 102 18 138/86 95
05/25/24 03:00 05/25/24 03:00 05/25/24 03:00 05/25/24 03:00 05/25/24 03:00
I&O
05/24/24 05/25/24 05/26/24
06:59 06:59 06:59
Intake Total 1440 / 1440 2740 / 2740
Balance 1440 / 1440 2740 / 2740
[2024-05-25 07:30] VITALS: BP 135/83
[2024-05-25] MEDS: NSS 1000 IV ×2 (09:38→20:55)
[2024-05-25] MEDS: NSS (PRESERVATIVE FREE) 10 ML IV (09:39)
[2024-05-25] MEDS: PROTONIX IV 40 MG IV (09:39)
[2024-05-25] MEDS: FIORICET 2 TAB PO (09:43)
[2024-05-25] MEDS: THERAGRAN 1 TABLET PO (09:43)
[2024-05-25] MEDS: WELLBUTRIN XL (24 hour extended release) 150 MG PO (09:43)
[2024-05-25] MEDS: VITAMIN D3 (cholecalciferol) 25 MCG PO (09:43)
--- NOTE | 2024-05-25 09:55 | PN.CDI ---
CDI
- -
CDI:
Physician Documentation Request
Admit Date: 05/23/24 11:34
Dear Doctor Margarita,
Please review the following and provide your response in the progress notes.
Clinical Indicators:
Pt admitted with sepsis 2/2 to colitis suspected ischemic /with rectal bleeding -bloody diarrhea
Abd /Pelvis CT on admit : ' Findings consistent with severe colitis involving the distal transverse colon, descending colon, and proximal sigmoid colon. Colitis is likely infectious or inflammatory...'
Progress note 05/24, ' Sepsis (tachycardia leukocytosis) infectious colitis versus IBD flare vs ischemic colitis (most likely)..'
GI progress note 05/25, ' Colitis: With chronic intermittent symptoms, and several studies now that show significant colitis at the splenic flexure, most consistent with watershed ischemia. She had 2 bloody stools yesterday though hemoglobin
overall stable, again consistent with ischemic colitis...'
Clarify which of the following accurately represents the suspected acuity of the Ischemic Colitis / location
Acute Ischemic colitis of transverse/descending /sigmoid colon
Acute on Chronic Ischemic colitis of transverse/descending /sigmoid colon
Other (please specify)
Use of terms such as suspected, likely, concern for, or probable (associated with a specific diagnosis that is being evaluated, monitored, or treated as if it exists) are acceptable and can be coded in the inpatient setting, when documented at the
time of discharge.
Thank you,
Pallavi De RN
CDI Specialist
[place] [facility]
Please use your independent medical judgment in providing your response.
[2024-05-25 12:00] VITALS: BP 119/80
[2024-05-25] MEDS: ROXICODONE 5 MG PO (13:03)
[2024-05-25 13:52] LABS: Hematocrit 32.5 % (37.0-47.0); Hemoglobin 11.1 g/dL (12.0-16.0)
--- NOTE | 2024-05-25 14:25 | CM ---
Monitoring labs, Low residue diet. Discharge Plan of Care: Anticipate no needs at discharge.
[2024-05-25 15:19] VITALS: BP 119/68
[2024-05-25] MEDS: LIPITOR 10 MG PO (17:09)
--- NOTE | 2024-05-25 18:56 | PTCARENOTE ---
Resident had diet upgraded to Low Residue and is tolerating it well. Communicated with ID regarding Pt's isolation precautions- Pt unable to have BM to send down for testing. C-diff order was discontinued. Communicated with MD who discontinued
Norovirus order. Pt is now on standard precautions. PRN pain medication given during shift for abdominal discomfort with + effects.
[2024-05-25 19:14] VITALS: BP 132/81
[2024-05-25] MEDS: ROBITUSSIN 200 MG PO (21:15)
--- NOTE | 2024-05-25 22:30 | PTCARENOTE ---
Pt arrived from [address] [place] [address] via wheelchair. Pt ambulated to the bed without assist. AAOx3. Oriented to room. No complaints at this time
[2024-05-25] MEDS: VALIUM 2.5 MG PO (22:52)
[2024-05-25] MEDS: TESSALON PERLES 100 MG PO (23:11)
[2024-05-25 23:20] VITALS: BP 122/70
[2024-05-26] VITALS (8 sets, daily range): BP systolic 112–137; BP diastolic 57–82
[2024-05-26] MEDS: NSS IV (00:11)
[2024-05-26] MEDS: ZOSYN 50 IV ×3 (02:51→16:43)
--- NOTE | 2024-05-26 07:20 | W.PN.HOSP.TC ---
Today's Communication/Plan
-
cont diet as per GI
transition IV abx to oral
pain control
monitor H&H
possible discharge tomorrow.
Assessment / Plan
Assessment / Plan
Physical Exam
General: No pallor, cyanosis, or jaundice.
HEENT: Throat clear. PERRLA Normocephalic atraumatic
NECK: Supple. No JVD Carotid Bruits
RESPIRATORY: Lungs clear to auscultation. No crackles wheezes stridor
CVS: S1, S2 normal. RRR. No murmur, rub or gallop.
ABDOMEN: Soft, Left sided abd tenderness no rebound tenderness or guarding. No distension. BS+/normal.
EXTREMITIES: No peripheral cyanosis or edema.
WELDER AND FITTER: AOx3..
IMPRESSION:
73F migraine anxiety GERD hyperlipidemia presents with new onset vomiting abdominal pain diarrhea last evening. Noted blood spots in last diarrhea bowel movement prompting visit to ED. Patient relates history of chronic intermittent alternating
constipation diarrhea nausea vomiting for the past few years. Diagnosed with unspecified colitis in past. Recently followed at [place] switched to GI care here. Former smoker 25+ years recently quit January 2024. In ED patient was sinus
tachycardia hypertensive but afebrile stable respiratory status on room air. Diffuse abdomen pain, left-sided tenderness, improved with once Toradol given by ED. Leukocytosis 18.8. Mild lactic acidosis 2.5 resolved with IV fluid bolus. Initial
creatinine 1.4 no prior values available. CT noted severe colitis involving distal transverse colon descending colon and proximal sigmoid colon. Suspect IBD flare versus sepsis (tachycardia leukocytosis) infectious colitis
PLAN:
#Sepsis (tachycardia leukocytosis) infectious colitis versus IBD flare vs ischemic colitis (most likely)
#Bloody diarrhea
#Severe colitis as noted on CT
Given clinical improvement empiric IV Zosyn transitioned to Augmentin planned for total 7 days abx as per GI
cont IV fluid
Pain control as needed Tylenol, oxycodone added mod severe pain, dilaudid remains available for severe breakthrough pain
As needed antiemetic Compazine
EKG appreciated mild QT prolongation
GI eval appreciated diet advanced to full liquid later downgraded back to clears after episode bloody bowel movement (VSS H&H remains relatively stable will cont to monitor)
05/25 diet advanced to low residue as per GI
#Hypertension
Possibly due to pain discomfort
anodiser
Hydralazine as needed
BP since improved w/ improvement in pain
#NINA versus CKD
Initial creatinine 1.4 improved to 1,2 suspect baseline
Denies dysuria oliguria
Monitor renal function, avoid nephrotoxic agents
Cr likely baseline 1.2-1.4
IVF completed, tolerating diet
#Migraine
prn Tylenol
resolved with once fioricet 05/25
#Anxiety
Continue home bupropion, diazepam with holding parameters for sedation
#GERD
Continue PPI
DVT prophylaxis SCDs
DNR as per patient
I spent a total of 55 minutes with the patient or on the floor. More than 50% of this time involved counseling and coordination of care.
Anticipated Discharge: 24 - 48 hours
Subjective/Interval History
-
Date of Service: May 26, 2024
Reports pain improved. Bloody bowel movments resolving.
Objective Data
-
Labs:
Laboratory Results
05/26/24
06:00
WBC Pending
Hgb Pending
Hct Pending
Plt Count Pending
Sodium Pending
Potassium Pending
Chloride Pending
Carbon Dioxide Pending
BUN Pending
Creatinine Pending
Glucose Pending
Calcium Pending
Total Bilirubin Pending
AST Pending
ALT Pending
Alkaline Phosphatase Pending
Vital Signs:
Vital Signs
Temp Pulse Resp BP Pulse Ox
99.7 F 92 18 112/57 97
05/26/24 03:26 05/26/24 03:26 05/26/24 03:26 05/26/24 03:26 05/26/24 03:26
I&O
05/25/24 05/26/24 05/27/24
06:59 06:59 06:59
Intake Total 2740 / 2740 3240 / 3240
Balance 2740 / 2740 3240 / 3240
[2024-05-26 08:14] LABS: Hematocrit 28.1 % (37.0-47.0); Hemoglobin 9.7 g/dL (12.0-16.0); Mean Corp Hgb Conc. 34.5 g/dL (33.0-37.0); Mean Corpuscular Hgb 29.6 pg (27.0-31.0); Mean Corpuscular Volume 85.7 fL (81.0-99.0); Mean Platelet Volume 8.9 fL (7.4-10.4); Platelet Count 226 10^3/uL (130-400); Red Blood Cell Count 3.28 10^6/uL (4.20-5.40); Red Cell Dist. Width 13.1 % (11.5-14.5); White Blood Cell Count 10.3 10^3/uL (4.8-10.8)
[2024-05-26] MEDS: NSS 1000 IV (08:44)
[2024-05-26] MEDS: WELLBUTRIN XL (24 hour extended release) 150 MG PO (08:46)
[2024-05-26] MEDS: VITAMIN D3 (cholecalciferol) 25 MCG PO (08:46)
[2024-05-26] MEDS: NSS (PRESERVATIVE FREE) 10 ML IV (08:46)
[2024-05-26] MEDS: PROTONIX IV 40 MG IV (08:46)
[2024-05-26] MEDS: THERAGRAN 1 TABLET PO (08:46)
[2024-05-26 09:01] LABS: ALT (SGPT) 44 U/L (0-35); AST (SGOT) 25 U/L (14-36); Alkaline Phosphatase 87 U/L (38-126); Blood Urea Nitrogen 7 mg/dl (7-17); Calcium 8.9 mg/dl (8.4-10.2); Carbon Dioxide 21 mmol/L (22-30); Chloride 113 mmol/L (98-107); Estimated Creatinine Clearance 32 ml/min; Glucose 88 mg/dl (70-99); Magnesium 1.8 mg/dl (1.6-2.3); Phosphorus 3.8 mg/dl (2.5-4.5); Potassium 3.8 mmol/L (3.5-5.1); Sodium 139 mmol/L (135-145); Total Bilirubin 0.4 mg/dl (0.2-1.3); Total Protein 4.9 g/dl (6.3-8.2); eGFR 43.15
[2024-05-26 10:53] LABS: Hematocrit 30.9 % (37.0-47.0); Hemoglobin 10.6 g/dL (12.0-16.0)
--- NOTE | 2024-05-26 11:34 | CM ---
Kajal has been having bloody diarrhea; evaluation in progress.
Initial assessment was for return home with no needs.
Plan: CM to follow for discharge planning needs as care progresses.
PCP: Sanjeev Rivera
[facility] in [place]
--- NOTE | 2024-05-26 13:38 | W.PN.GI.CBS2 ---
Addendum entered and electronically signed by Hector Kim MD 05/26/24 16:36:
I saw and examined the patient.
The PA's note was reviewed and I agree with the note.
Comment:
Pain is improving, tolerating diet. Has OP endo procedures planned. Agree with completing 7 day course of abx. Will s/o.
Original Note:
Today's Communication / Plan
-
As per plan
Assessment / Plan
-
1. Colitis: With chronic intermittent symptoms, and several studies now that show significant colitis at the splenic flexure, most consistent with watershed ischemia.
Plan:
-Continue low residue diet
-Outpatient EGD/[facility] planned with Dr. Haro 06/16
-Continue Abx to complete 7 day tx
-Would plan on eventual MRA when creatinine improved, still 1.3
Subjective
Subjective
Date of Service: May 26, 2024
Patient tolerating solid diet yesterday and today without any difficulty. Some brown loose stool with some blood but much improved. Abdominal cramping much improved. Hgb stable, continues on Zosyn. LFTs improving. Creat still elevated at 1.3, so MRA
not obtained. Can consider testing as an outpatient after follow up with Dr. Haro.
Objective
Data Reviewed
Laboratory Data:
Laboratory Results
05/26/24 10:32
05/26/24 07:58
Laboratory Results
Phosphorus 3.8 mg/dl (2.5-4.5) 05/26/24 07:58
Magnesium 1.8 mg/dl (1.6-2.3) 05/26/24 07:58
Total Bilirubin 0.4 mg/dl (0.2-1.3) 05/26/24 07:58
AST 25 U/L (14-36) 05/26/24 07:58
ALT 44 U/L (0-35) H 05/26/24 07:58
Alkaline Phosphatase 87 U/L (38-126) 05/26/24 07:58
Lipase 57 U/L (23-300) 05/23/24 04:30
Vital Signs and I&O:
Vital Signs
Temp Pulse Resp BP Pulse Ox
99.1 F 92 16 127/75 95
05/26/24 11:00 05/26/24 11:00 05/26/24 11:00 05/26/24 11:00 05/26/24 11:00
I&O
05/25/24 05/26/24 05/27/24
06:59 06:59 06:59
Intake Total 2740 / 2740 3240 / 3240 550 / 550
Balance 2740 / 2740 3240 / 3240 550 / 550
Physical Exam
Physical Exam
HEENT: Anicteric
Cardiology: Normal Sinus Rhythm
Pulmonary: Clear
GI: Soft, Non Distended, Non Tender and Normal Bowel Sounds
Neuro: Non Focal
--- NOTE | 2024-05-26 14:48 | PTCARENOTE ---
Patient denies any n/v/pain this shift so far. Ambulating independently in room. Possibly switching from IV to oral abx this shift. Pt denies bloody stool so far this shift
[2024-05-26] MEDS: LIPITOR 10 MG PO (17:04)
[2024-05-26] MEDS: VISBIOME 1 CAP PO (17:48)
[2024-05-26] MEDS: AUGMENTIN 875 MG/125 MG 1 TABLET PO (19:48)
[2024-05-26] MEDS: VALIUM 2.5 MG PO (22:37)
[2024-05-26] MEDS: ROBITUSSIN 200 MG PO (23:32)
[2024-05-27] VITALS (9 sets, daily range): BP systolic 132–168; BP diastolic 62–96; PULSE 101
[2024-05-27] MEDS: ROBITUSSIN 200 MG PO ×4 (03:44→22:24)
--- NOTE | 2024-05-27 07:10 | W.PN.HOSP.TC ---
Today's Communication/Plan
-
cont abx
pain control
psych eval
imodium prn
Assessment / Plan
Assessment / Plan
Physical Exam
General: No pallor, cyanosis, or jaundice.
HEENT: Throat clear. PERRLA Normocephalic atraumatic
NECK: Supple. No JVD Carotid Bruits
RESPIRATORY: Lungs clear to auscultation. No crackles wheezes stridor
CVS: S1, S2 normal. RRR. No murmur, rub or gallop.
ABDOMEN: Soft, Left sided abd tenderness no rebound tenderness or guarding. No distension. BS+/normal.
EXTREMITIES: No peripheral cyanosis or edema.
DAIRY WORKER: AOx3..
IMPRESSION:
73F migraine anxiety GERD hyperlipidemia presents with new onset vomiting abdominal pain diarrhea last evening. Noted blood spots in last diarrhea bowel movement prompting visit to ED. Patient relates history of chronic intermittent alternating
constipation diarrhea nausea vomiting for the past few years. Diagnosed with unspecified colitis in past. Recently followed at [place] switched to GI care here. Former smoker 25+ years recently quit January 2024. In ED patient was sinus
tachycardia hypertensive but afebrile stable respiratory status on room air. Diffuse abdomen pain, left-sided tenderness, improved with once Toradol given by ED. Leukocytosis 18.8. Mild lactic acidosis 2.5 resolved with IV fluid bolus. Initial
creatinine 1.4 no prior values available. CT noted severe colitis involving distal transverse colon descending colon and proximal sigmoid colon. Suspect IBD flare versus sepsis (tachycardia leukocytosis) infectious colitis
PLAN:
#Sepsis (tachycardia leukocytosis) infectious colitis versus IBD flare vs Acute on Chronic Ischemic colitis of transverse/descending /sigmoid colon (most likely)
#Bloody diarrhea
#Severe colitis as noted on CT
Given clinical improvement empiric IV Zosyn transitioned to Augmentin planned for total 7 days abx as per GI
cont IV fluid
Pain control as needed Tylenol, oxycodone added mod severe pain, dilaudid remains available for severe breakthrough pain
As needed antiemetic Compazine
EKG appreciated mild QT prolongation
GI eval appreciated diet advanced to full liquid later downgraded back to clears after episode bloody bowel movement (VSS H&H remains relatively stable will cont to monitor)
05/25 diet advanced to low residue as per GI
#Hypertension
Possibly due to pain discomfort
air sampling and monitoring
Hydralazine as needed
BP since improved w/ improvement in pain
#NINA versus CKD
Initial creatinine 1.4 improved to 1,2 suspect baseline
Denies dysuria oliguria
Monitor renal function, avoid nephrotoxic agents
Cr likely baseline 1.2-1.4
IVF completed, tolerating diet
#Migraine
prn Tylenol
resolved with once fioricet 05/25
#Anxiety
#Depression
Continue home bupropion, diazepam with holding parameters for sedation
05/27 reporting significant depression w/ chronic illness, denies suicidal ideation thoughts of harming others or self, psych eval requested per patient's request
#GERD
Continue PPI
#Diarrhea
neg for cdiff
imodium prn
DVT prophylaxis SCDs
DNR as per patient
I spent a total of 55 minutes with the patient or on the floor. More than 50% of this time involved counseling and coordination of care.
Anticipated Discharge: 24 - 48 hours
Subjective/Interval History
-
Date of Service: May 27, 2024
Reports diarrhea, bloody bowel movements however since resolved. Continues to report abd pain. Further reports depression requesting psych eval. Denies suicidal ideation thoughts of harming self or others.
Objective Data
-
Labs:
Laboratory Results
05/27/24
06:58
WBC Pending
Hgb Pending
Hct Pending
Plt Count Pending
Sodium Pending
Potassium Pending
Chloride Pending
Carbon Dioxide Pending
BUN Pending
Creatinine Pending
Glucose Pending
Calcium Pending
Total Bilirubin Pending
AST Pending
ALT Pending
Alkaline Phosphatase Pending
Vital Signs:
Vital Signs
Temp Pulse Resp BP Pulse Ox
99.4 F 98 18 132/78 97
05/27/24 03:38 05/27/24 03:38 05/27/24 03:38 05/27/24 03:38 05/27/24 03:38
I&O
05/26/24 05/27/24 05/28/24
06:59 06:59 06:59
Intake Total 3240 / 3240 1150 / 1150
Balance 3240 / 3240 1150 / 1150
[2024-05-27 07:36] LABS: Hemoglobin 10.4 g/dL (12.0-16.0); Mean Corp Hgb Conc. 34.7 g/dL (33.0-37.0); Mean Corpuscular Hgb 29.5 pg (27.0-31.0); Platelet Count 251 10^3/uL (130-400); Red Blood Cell Count 3.53 10^6/uL (4.20-5.40); Red Cell Dist. Width 13.2 % (11.5-14.5); White Blood Cell Count 8.4 10^3/uL (4.8-10.8)
[2024-05-27 07:46] LABS: ALT (SGPT) 36 U/L (0-35); AST (SGOT) 21 U/L (14-36); Albumin 3.4 g/dl (3.5-5.0); Alkaline Phosphatase 81 U/L (38-126); Blood Urea Nitrogen 8 mg/dl (7-17); Calcium 9.6 mg/dl (8.4-10.2); Carbon Dioxide 27 mmol/L (22-30); Chloride 110 mmol/L (98-107); Estimated Creatinine Clearance 35 ml/min; Glucose 91 mg/dl (70-99); Magnesium 1.9 mg/dl (1.6-2.3); Phosphorus 4.6 mg/dl (2.5-4.5); Sodium 142 mmol/L (135-145); Total Bilirubin 0.4 mg/dl (0.2-1.3); Total Protein 5.6 g/dl (6.3-8.2)
[2024-05-27] MEDS: PROTONIX IV 40 MG IV (09:01)
[2024-05-27] MEDS: THERAGRAN 1 TABLET PO (09:01)
[2024-05-27] MEDS: NSS (PRESERVATIVE FREE) 10 ML IV (09:01)
[2024-05-27] MEDS: VISBIOME 1 CAP PO (09:01)
[2024-05-27] MEDS: AUGMENTIN 875 MG/125 MG 1 TABLET PO ×2 (09:01→20:30)
[2024-05-27] MEDS: VITAMIN D3 (cholecalciferol) 25 MCG PO (09:02)
[2024-05-27] MEDS: ROXICODONE 5 MG PO (09:02)
[2024-05-27] MEDS: FLUSH (NSS) 1 FLUSH IV (09:02)
[2024-05-27] MEDS: WELLBUTRIN XL (24 hour extended release) 150 MG PO (09:02)
--- NOTE | 2024-05-27 12:56 | CM ---
CM met with patient bedside, patient reports she told Hospitalist earlier she did not want to speak to Psychiatry, patient has changed her mind and would like to. Patient reports she has been feeling very weak lately and is nervous to return home as
she lives alone. Patient reports her daughter lives nearby with her two grandchildren, two grandchildren bring her a lot of shawnee. Patient reports she is still driving. Patient reports she is nervous to leave the home for multiple reasons, some being
medical, some to do with the crime in the area. Patient reports her a few years ago, patient then moved to [facility] from [place] to be near family. CM discussed VN referral, patient must be considered home bound. PT/OT to see
patient. Patient inquiring if possible to go somewhere else to talk when Psychiatry is able to meet with patient, reports she is not comfortable discussing this while in a shared room. CM updated nurse. CM will continue to follow for all discharge
planning needs.
Plan; PT/OT to see patient, Psych to see patient.
--- NOTE | 2024-05-27 13:30 | PTCARENOTE ---
Pt's BP at 1130 vital sign check was 168/90, pt reports feeling anxious, does not feel like she needs anything at this time as far as meds, wants to talk to psych, consult ordered by Dr. Avila. Reassessed and BP 161/96 and 158/80 at 1330, will
continue to monitor.
--- NOTE | 2024-05-27 15:06 | W.PN.UPDATE ---
Update Note
Progress Note Update
Psychiatric evaluation dictated.
Patient is both anxious and depressed regarding her illness as well as being lonely after her about 3 years ago. She has has depression since she was 19 yo and has been in treatment on and off much of her life including an inpatient
stay at [facility] when she was 37 for suicidal thoughts. Currently sees a psychiatrist ever 8 weeks ans is on Wellbutrin 200 mg bid. Does not see a therapist.
Presently denies hopelessness or suicidal thoughts.
I will increase the Wellbutrin XL to 300 mg daily, recommend also OP psychotherapy.
Will F/U
--- NOTE | 2024-05-27 15:59 | PTOTSP ---
Patient demonstrates independent mobility including stairs, no skilled physical therapy needs at this time.
[2024-05-27] MEDS: LIPITOR 10 MG PO (18:16)
[2024-05-27] MEDS: VALIUM 2.5 MG PO (21:57)
[2024-05-28] MEDS: ROBITUSSIN 200 MG PO ×2 (05:15→11:43)
--- NOTE | 2024-05-28 06:31 | W.PN.HOSP.TC ---
Today's Communication/Plan
-
discharge
Assessment / Plan
Assessment / Plan
Physical Exam
General: No pallor, cyanosis, or jaundice.
HEENT: Throat clear. PERRLA Normocephalic atraumatic
NECK: Supple. No JVD Carotid Bruits
RESPIRATORY: Lungs clear to auscultation. No crackles wheezes stridor
CVS: S1, S2 normal. RRR. No murmur, rub or gallop.
ABDOMEN: Soft, Left sided abd tenderness no rebound tenderness or guarding. No distension. BS+/normal.
EXTREMITIES: No peripheral cyanosis or edema.
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
IMPRESSION:
73F migraine anxiety GERD hyperlipidemia presents with new onset vomiting abdominal pain diarrhea last evening. Noted blood spots in last diarrhea bowel movement prompting visit to ED. Patient relates history of chronic intermittent alternating
constipation diarrhea nausea vomiting for the past few years. Diagnosed with unspecified colitis in past. Recently followed at [facility] switched to GI care here. Former smoker 25+ years recently quit January 2024. In ED patient was sinus
tachycardia hypertensive but afebrile stable respiratory status on room air. Diffuse abdomen pain, left-sided tenderness, improved with once Toradol given by ED. Leukocytosis 18.8. Mild lactic acidosis 2.5 resolved with IV fluid bolus. Initial
creatinine 1.4 no prior values available. CT noted severe colitis involving distal transverse colon descending colon and proximal sigmoid colon. Suspect IBD flare versus sepsis (tachycardia leukocytosis) infectious colitis
PLAN:
#Sepsis (tachycardia leukocytosis) infectious colitis versus IBD flare vs Acute on Chronic Ischemic colitis of transverse/descending /sigmoid colon (most likely)
#Bloody diarrhea
#Severe colitis as noted on CT
Given clinical improvement empiric IV Zosyn transitioned to Augmentin planned for total 7 days abx as per GI. Last day of abx 05/29/24
cont IV fluid
Pain control as needed Tylenol, oxycodone added mod severe pain, dilaudid remains available for severe breakthrough pain
As needed antiemetic Compazine
EKG appreciated mild QT prolongation
GI eval appreciated diet advanced to full liquid later downgraded back to clears after episode bloody bowel movement (VSS H&H remains relatively stable will cont to monitor)
05/25 diet advanced to low residue as per GI
#Hypertension
Possibly due to pain discomfort
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
Hydralazine as needed
BP since improved w/ improvement in pain
#NINA versus CKD III
Denies dysuria oliguria
Monitor renal function, avoid nephrotoxic agents
Cr 1.2-1.4 throughout most of hospitalization, improved to 1.0 on discharge
IVF completed, tolerating diet
#Migraine
prn Tylenol
resolved with once fioricet 05/25
#Anxiety
#Depression
Continue home bupropion, diazepam with holding parameters for sedation
05/27 reporting significant depression w/ chronic illness, denies suicidal ideation thoughts of harming others or self
Psych eval appreciated home wellbutrin converted to 300 mg XL daily dosing for steady state and ease of dosing
Patient since improved
#GERD
Continue PPI
#Diarrhea
neg for cdiff
imodium prn (has not required)
DVT prophylaxis SCDs
DNR as per patient
Medically stable for discharge home with home services and outpatient follow up recommendations.
Total Time Preparing Discharge __50 minutes including examination of the patient, summary of the hospital stay, instructions for continuing care to all relevant caregivers; and preparation of discharge records, prescriptions, and referral
forms if necessary.
Anticipated Discharge: Today
Subjective/Interval History
-
Date of Service: May 28, 2024
Seen and examined at bedside in no acute distress sitting up comfortably in bed. Reports overall improvement in symptoms. Feeling well. Eager to go home
Objective Data
-
Labs:
Laboratory Results
05/28/24
06:10
WBC Pending
Hgb Pending
Hct Pending
Plt Count Pending
Sodium Pending
Potassium Pending
Chloride Pending
Carbon Dioxide Pending
BUN Pending
Creatinine Pending
Glucose Pending
Calcium Pending
Total Bilirubin Pending
AST Pending
ALT Pending
Alkaline Phosphatase Pending
Vital Signs:
Vital Signs
Temp Pulse Resp BP Pulse Ox
98.1 F 105 18 146/62 94
05/27/24 23:35 05/27/24 23:35 05/27/24 23:35 05/27/24 23:35 05/27/24 23:35
I&O
05/26/24 05/27/24 05/28/24
06:59 06:59 06:59
Intake Total 3240 / 3240 1150 / 1150 600 / 600
Balance 3240 / 3240 1150 / 1150 600 / 600
[2024-05-28 06:40] LABS: Hematocrit 30.6 % (37.0-47.0); Hemoglobin 10.7 g/dL (12.0-16.0); Mean Corpuscular Hgb 29.6 pg (27.0-31.0); Mean Corpuscular Volume 84.5 fL (81.0-99.0); Mean Platelet Volume 8.7 fL (7.4-10.4); Platelet Count 273 10^3/uL (130-400); Red Blood Cell Count 3.62 10^6/uL (4.20-5.40); Red Cell Dist. Width 12.8 % (11.5-14.5); White Blood Cell Count 7.5 10^3/uL (4.8-10.8)
[2024-05-28 07:05] VITALS: BP 95/67
[2024-05-28 07:08] LABS: ALT (SGPT) 30 U/L (0-35); AST (SGOT) 25 U/L (14-36); Albumin 3.5 g/dl (3.5-5.0); Alkaline Phosphatase 72 U/L (38-126); Blood Urea Nitrogen 13 mg/dl (7-17); Calcium 9.6 mg/dl (8.4-10.2); Carbon Dioxide 25 mmol/L (22-30); Chloride 106 mmol/L (98-107); Estimated Creatinine Clearance 42 ml/min; Glucose 93 mg/dl (70-99); Magnesium 1.8 mg/dl (1.6-2.3); Phosphorus 5.3 mg/dl (2.5-4.5); Potassium 4.2 mmol/L (3.5-5.1); Sodium 138 mmol/L (135-145); Total Bilirubin 0.4 mg/dl (0.2-1.3); Total Protein 5.7 g/dl (6.3-8.2); eGFR 59.12
[2024-05-28] MEDS: THERAGRAN 1 TABLET PO (08:27)
[2024-05-28] MEDS: AUGMENTIN 875 MG/125 MG 1 TABLET PO (08:27)
[2024-05-28] MEDS: PROTONIX IV 40 MG IV (08:27)
[2024-05-28] MEDS: NSS (PRESERVATIVE FREE) 10 ML IV (08:27)
[2024-05-28] MEDS: WELLBUTRIN XL (24 hour extended release) 300 MG PO (08:27)
[2024-05-28] MEDS: VITAMIN D3 (cholecalciferol) 25 MCG PO (08:27)
[2024-05-28] MEDS: ROXICODONE 5 MG PO (08:27)
[2024-05-28] MEDS: VISBIOME 1 CAP PO (08:27)
--- NOTE | 2024-05-28 12:53 | CM ---
Patient seen bedside, reports she is feeling much better today and is eager to go home. Patient reports her daughter will provide transportation home. Patient requesting VN for OT, reports she will be home bound. CM will send referral to [facility].
IMM reviewed, signed, placed in chart. CM will continue to follow for all discharge planning needs.
Plan; home with referral to [facility].
--- NOTE | 2024-05-28 13:40 | W.DCSUMMARY ---
Discharge Summary
Discharge Data
Date of Admission: 05/23/24
Date of Discharge: 05/28/24
-
Pending Results: Yes
Additional Pending Results:
official culture results
Discharge Plan
-
Patient Disposition: Home with Home Care
Discharge Diagnosis/Procedures: #Sepsis infectious colitis vs Acute on Chronic Ischemic colitis of transverse/descending /sigmoid colon (most likely)
#Bloody diarrhea
#Severe colitis
#Hypertension
#Acute Kidney Injury on Chronic Kidney Disease Stage III
#Migraine
#Anxiety
#Depression
#GERD
#Diarrhea
Condition: Fair
Diet: Low Residue
Additional Diets: Advance as tolerated after one week
Activity: As tolerated
Driving Restrictions: As prior to admission
Bathing Restrictions: None
Blood Work: Please repeat CBC and BMP with primary care provider in 1 week of discharge.
Other Services: OT
Activity Restrictions/Additional Instructions:
Please follow up with primary care provider and psychiatry in 1 week of discharge. Keep your appointment with GI.
Augmentin has been prescribed to continue through 05/29/24 to complete total 7 days antibiotics treatment for possible infectious colitis vs ischemic.
Home Wellbutrin has been converted to 300 mg XL version for better control of depression as per psych recommendations.
Oxycodone has been prescribed as needed moderate severe pain, 5 day supply
Home Miralax has been changed to as needed daily instead of scheduled.
Please take medications as prescribed/recommended and follow up with primary care provider and/or other healthcare provider involved in your care for refills and/or further adjustment to your medication regimen as necessary.
Referrals:
Sanjeev iRvera MD [Family Provider] - in one week
Suzy Haro MD [Active] - 06/16/24
Prescriptions:
New
amoxicillin-pot clavulanate 875-125 mg Tablet
1 tab PO Q12 Qty: 3 0RF
oxycodone 5 mg Tablet
5 mg PO BIDPRN PRN (Reason: moderate severe pain) Qty: 10 0RF
bupropion HCl 300 mg Tablet Extended Release 24 Hr
300 mg PO DAILY 30 Days Qty: 30 0RF
Continued
guaifenesin 100 mg/5 mL Liquid
200 mg PO Q4HPRN PRN (Reason: cough)
simvastatin 20 mg Tablet
20 mg PO QPM
Excedrin Migraine 250-250-65 mg Tablet
2 tab PO DAILYPRN PRN (Reason: headache)
diazepam 5 mg Tablet
2.5 mg PO HS
Nurtec ODT 75 mg Tablet,Disintegrating
75 mg PO DAILYPRN PRN (Reason: migraines)
Patient Comments:
05/23/24-patient has free samples
therapeutic multivitamin Tablet
1 tab PO DAILY
cholecalciferol (vitamin D3) [Vitamin D3] 25 mcg (1,000 unit) Tablet
25 mcg PO DAILY
omeprazole 20 mg Tablet,Delayed Release (Dr/Ec)
20 mg PO HS
Changed
polyethylene glycol 3350 [Miralax] 17 gram/dose Powder
17 g PO DAILYPRN PRN (Reason: constipation) Qty: 0 0RF
Discontinued
bupropion HCl 200 mg Tablet Sustained-Release 12 Hr
200 mg PO BID
Discharge Orders:
Discharge Patient (As Directed); Ordered 05/28/24
Ordered By: Lizandro Avila
Discharge Date and Time
Print Language: UKRAINIAN
[2024-05-28 14:59] VITALS: BP 147/73; PULSE 102; O2SAT 95
[2024-05-28 15:31] VITALS: BP 115/86
--- NOTE | 2024-05-28 15:41 | PTCARENOTE ---
IV discontinued. Discharge paperwork printed and reviewed with patient who verbalized understanding. Pt transported off the floor via wheelchair with all belongings from the room by RN. Transported home by daughter.
== END 2024-05-28 15:54 | disposition home health service (06) | DRG 871 ==
LOC: 4 EAST ACU 11:34
PROVIDERS: Emergency Medicine; Nurse Practitioner Family; ADMITTING PHYSICIAN Internal Medicine; CONSULT PHYSICIAN Internal Medicine Gastroenterology; CONSULT PHYSICIAN Psychiatry & Neurology Psychiatry; EMERGENCY PHYSICIAN Emergency Medicine; FAMILY PHYSICIAN Internal Medicine
DX: A41.9 Sepsis, unspecified organism (principal); K55.031 Focal (segmental) acute (reversible) ischemia of large intestine; N17.9 Acute kidney failure, unspecified; F33.9 Major depressive disorder, recurrent, unspecified; K55.1 Chronic vascular disorders of intestine; E87.20 Acidosis, unspecified; I12.9 Hypertensive chronic kidney disease with stage 1 through stage 4 chronic kidney disease, or unspecified chronic kidney disease; N18.30 Chronic kidney disease, stage 3 unspecified; Z66 Do not resuscitate; E78.00 Pure hypercholesterolemia, unspecified; K21.9 Gastro-esophageal reflux disease without esophagitis; G43.909 Migraine, unspecified, not intractable, without status migrainosus; F41.9 Anxiety disorder, unspecified; R00.0 Tachycardia, unspecified; Z87.891 Personal history of nicotine dependence; Z79.82 Long term (current) use of aspirin; Z79.899 Other long term (current) drug therapy; Z63.4 Disappearance and death of family member
CPT/HCPCS: 74177; 80053; 83605; 83690; 83735; 84100; 85014; 85018; 85025; 85027; 86850; 86900; 86901; 87040; 87045; 87046; 87324; 87328; 87329; 87427; 87449; 93005; 96365; 96375; 97116; 97162; 97166; 97535; 99285; Q9967

== ENCOUNTER → 2024-06-16 06:06 | Day surgery (SDC) | payer MEDICARE, BC, SELFPAY | LOC: GI 06:06 | PROVIDERS: ATTENDING PHYSICIAN Internal Medicine Gastroenterology | DX: R19.4 Change in bowel habit (principal); K57.30 Diverticulosis of large intestine without perforation or abscess without bleeding; K55.9 Vascular disorder of intestine, unspecified; K62.1 Rectal polyp; K63.5 Polyp of colon; D12.3 Benign neoplasm of transverse colon; R12 Heartburn | CPT/HCPCS: 45385; 45380; 43235; 88305 ==

== ENCOUNTER → 2024-07-28 14:00 | Outpatient (REF) | payer MEDICARE, BC, SELFPAY | LOC: PAVMRI 14:00 | PROVIDERS: ATTENDING PHYSICIAN Internal Medicine Gastroenterology; FAMILY PHYSICIAN Internal Medicine | DX: K55.9 Vascular disorder of intestine, unspecified (principal); K55.1 Chronic vascular disorders of intestine; R10.32 Left lower quadrant pain | CPT/HCPCS: 72198; 74185; A9585 ==

== ENCOUNTER → 2025-06-28 11:24 | Outpatient (REF) | payer MEDICARE, BC, SELFPAY ==
[2025-06-28 12:33] LABS: Hematocrit 39.4 % (37.0-47.0); Hemoglobin 13.1 g/dL (12.0-16.0); Mean Corp Hgb Conc. 33.2 g/dL (33.0-37.0); Mean Corpuscular Volume 86.2 fL (81.0-99.0); Nucleated Red Blood Cells % 0 %; Platelet Count 302 10^3/uL (130-400); Red Cell Dist. Width 13.3 % (11.5-14.5)
[2025-06-28 13:09] LABS: ALT (SGPT) 19 U/L (0-35); AST (SGOT) 21 U/L (14-36); Albumin 4.5 g/dl (3.5-5.0); Alkaline Phosphatase 96 U/L (38-126); Blood Urea Nitrogen 16 mg/dl (7-17); Calcium 10.2 mg/dl (8.4-10.2); Carbon Dioxide 28 mmol/L (22-30); Chloride 107 mmol/L (98-107); Glucose 92 mg/dl (70-99); Potassium 4.8 mmol/L (3.5-5.1); Sodium 142 mmol/L (135-145); Total Protein 6.7 g/dl (6.3-8.2); eGFR 47.21
== END ==
LOC: REG 11:24
PROVIDERS: ATTENDING PHYSICIAN Internal Medicine Gastroenterology; FAMILY PHYSICIAN Internal Medicine
DX: K58.2 Mixed irritable bowel syndrome (principal); K55.9 Vascular disorder of intestine, unspecified
CPT/HCPCS: 36415; 80053; 83516; 85025

== ENCOUNTER → 2025-07-02 16:18 | Outpatient (REF) | payer MEDICARE, BC, SELFPAY | LOC: RAD 16:18 | PROVIDERS: ATTENDING PHYSICIAN Internal Medicine Gastroenterology; FAMILY PHYSICIAN Internal Medicine; REFERRING PHYSICIAN Internal Medicine Critical Care Medicine | DX: R13.19 Other dysphagia (principal); K55.9 Vascular disorder of intestine, unspecified | CPT/HCPCS: 74177; Q9967 ==

== ENCOUNTER → 2025-07-17 09:44 | Outpatient (REF) | payer MEDICARE, BC, SELFPAY | LOC: RST 09:44 | PROVIDERS: ATTENDING PHYSICIAN Internal Medicine Gastroenterology; FAMILY PHYSICIAN Internal Medicine; OTHER PHYSICIAN Internal Medicine Critical Care Medicine | DX: R13.19 Other dysphagia (principal) | CPT/HCPCS: 74221; 74230; 92611 ==